=== PATIENT | female | born 1985 | race Caucasian/White ===

== ENCOUNTER 2019-07-09 08:31 | Outpatient (CLI) | payer OTHER ==
--- NOTE | 2019-07-13 10:37 | Ultrasound Report ---
Reason: PREVIOUS DELIVERY Procedure Date: 07/09/2019 Accession Number: [id number] / [id number] Procedure: US - OB Limited CPT Code: Final Report FULL RESULT: EXAM: LIMITED OBSTETRICAL ULTRASOUND EXAM DATE: 07/09/2019 08:36 AM. CLINICAL HISTORY: PREVIOUS DELIVERY. COMPARISON: None. TECHNIQUE: Real-time sonographic evaluation of the fetus performed by the ear flap binder. Multiple outbound call center representative static images were saved for review. DATING: Established EGA 26 weeks 6 days with MARY 10/09/2019. GENERAL EVALUATION Yu . Cardiac activity: 139 bpm. movement: Visualized. Presentation: Cephalic. Placenta: Posterior position. Amniotic fluid: Normal. RANDI 12.8 cm. MVP 4.1 cm. MATERNAL STRUCTURES Transabdominal cervix measures 3.9 cm, long and closed. IMPRESSION: 1. Yu live intrauterine with gestational age 26 weeks 6 days based on working due date. 2. Normal appearance of the transabdominal cervix, 3.9 cm length. RADIA
== END 2019-07-09 08:32 | disposition home or self-care (01) ==
LOC: DI 08:31
PROVIDERS: ATTEND Midwife
DX: O09.212 Supervision of pregnancy with history of pre-term labor, second trimester (principal); Z3A.26 26 weeks gestation of pregnancy
CPT/HCPCS: 76815